=== PATIENT | female | born 1980 | race Caucasian/White ===

== ENCOUNTER 2017-10-21 14:29 | Emergency (ER) | payer OTHER ==
[~2017-10-21] VITALS: Ht 167.6 cm; Wt 102.6 kg
[~2017-10-21 14:29] MED LIST: CELEXA20 MG PO
[2017-10-21 15:34] LABS: HEMATOCRIT 38.6 % (36.0-46.0); HEMOGLOBIN 13.5 G/DL (11.9-15.5); MCH 33.5 PG (29.0-34.0); MCV 95.8 FL (83-99); PLATELET COUNT 236 K/uL (156-360); RBC DIS.WIDTH-CV 11.6 % (11.8-14.6); RBC DIS.WIDTH-SD 40.6 % (39-53); RED BLOOD COUNT 4.03 M/uL (3.80-5.20); WHITE BLOOD COUNT 9.6 K/uL (4.1-10.2)
[2017-10-21 15:51] LABS: ALBUMIN 3.9 g/dL (3.2-4.8); CHLORIDE 107 mEq/L (99-109); POTASSIUM 3.9 mEq/L (3.7-5.4); SODIUM 138 mEq/L (136-147)
[2017-10-21 15:54] LABS: GLUCOSE 117 mg/dL (70-99); TOTAL PROTEIN 6.6 g/dL (6.4-8.3)
[2017-10-21 15:56] LABS: TOTAL BILIRUBIN 0.3 mg/dL (0.0-1.0)
[2017-10-21 15:57] LABS: ALKALINE PHOSPHATASE 84 IU/L (3-129); CREATININE 0.7 mg/dL (0.6-1.3); GFR ESTIMATE (CALCULATED) > 59 mL/min/
[2017-10-21 15:58] LABS: UREA NITROGEN (BUN) 9 mg/dL (9-23)
[2017-10-21 15:59] LABS: AST (GOT) 17 IU/L (2-34)
[2017-10-21 16:00] LABS: ALT (GPT) 20 IU/L (3-49)
[2017-10-21 16:01] LABS: LIPASE 44 U/L (1.0-51.0)
[2017-10-21 16:58] LABS: APPEARANCE CLOUDY ((CLEAR)); BILIRUBIN NEGATIVE; BLOOD MODERATE; COLOR AMBER ((YELLOW)); GLUCOSE (STRIP) NEGATIVE; KETONES NEGATIVE; LEUKOCYTES LARGE; NITRITE NEGATIVE; PROTEIN (STRIP) 100; SPECIFIC GRAVITY 1.018 (1.000-1.030); UROBILINOGEN 0.2 MG/DL (0.2-1.0)
[2017-10-21] MEDS ORDERED: NORCO 5/3251 TABLET PO (17:31)
[2017-10-21] MEDS ORDERED: LEVAQUIN750 MG PO (17:34)
[2017-10-21 17:39] LABS: BACTERIA 2+ /HPF; EPITHELIAL CELLS 2+ /HPF; MUCUS NONE SEEN /LPF; UCUL ADDED? YES; WHITE BLOOD CELLS TNTC /HPF (0-5)
[2017-10-21 17:46] VITALS: BP 122/67
== END 2017-10-21 18:04 | disposition home or self-care (01) ==
LOC: EME 14:29
PROVIDERS: Emergency Medicine Emergency Medical Services
DX: N12 Tubulo-interstitial nephritis, not specified as acute or chronic (principal); N20.0 Calculus of kidney; Z87.442 Personal history of urinary calculi; F90.9 Attention-deficit hyperactivity disorder, unspecified type; F17.200 Nicotine dependence, unspecified, uncomplicated
CPT/HCPCS: 74176; 80048; 80053; 81003; 83690; 85027; 87077; 87086; 87186; 99281; 99284

== ENCOUNTER 2018-02-23 16:43 | Emergency (ER) | payer OTHER ==
[~2018-02-23] VITALS: Ht 170.2 cm; Wt 88.5 kg
[~2018-02-23 16:43] MED LIST changes: +LEVAQUIN750 MG PO; +NORCO 5/3251 TABLET PO
[2018-02-23] MEDS ORDERED: POLYTRIM EYE DR10 ML LEFT EYE (17:32)
[2018-02-23 18:11] VITALS: BP 130/83
== END 2018-02-23 18:13 | disposition home or self-care (01) ==
LOC: EME 16:43
DX: S05.02XA Injury of conjunctiva and corneal abrasion without foreign body, left eye, initial encounter (principal); X58.XXXA Exposure to other specified factors, initial encounter; Y92.832 Beach as the place of occurrence of the external cause; F17.200 Nicotine dependence, unspecified, uncomplicated
CPT/HCPCS: 99281; 99284